=== PATIENT | female | born 2000 | race Caucasian/White ===

== ENCOUNTER 2019-03-10 09:33 | Emergency (ER) | payer OTHER ==
[~2019-03-10] VITALS: Ht 162.6 cm; Wt 46.3 kg
[2019-03-10 09:35] VITALS: BP 123/70
--- NOTE | 2019-03-10 09:35 | NUR ---
TO BED # 07 AMBULATORY
--- NOTE | 2019-03-10 09:49 | NUR ---
PT BIB MOTHER WITH C/O SOB FOR 2 NIGHTS. STATES GETS WORSE WHEN LYING DOWN ON HER BACK AND AT THE NIGHT TIME. DENIES ANY CHEST PAIN, N,V OR FEVER AT THIS TIME. LUNGS SOUNDS CLEAR UPON AUSCULTATION. EQUAL AND EVEN RESPIRATION. HX; ASTHMA, NOT ON ANY MEDS ATTHIS TIME.
[2019-03-10 10:16] VITALS: BP 123/70
== END 2019-03-10 10:15 | disposition home or self-care (01) ==
LOC: MED 09:33
DX: J45.909 Unspecified asthma, uncomplicated (principal)
CPT/HCPCS: 99281; 99283